=== PATIENT | female | born 1995 | race African-American/Black ===

== ENCOUNTER 2020-09-06 18:25 | Emergency (ER) | payer OTHER ==
[2020-09-06 18:40] VITALS: BP 134/89
--- NOTE | 2020-09-06 18:55 | ED Physician Documentation ---
History of Present Illness - Stated complaint Stated Complaint: FEMALE - Chief complaint Chief Complaint: Wound - History obtained from History obtained from: Patient - History of Present Illness Timing: Prior to arrival - Additonal information Additional information: 25-year-old female presents to the emergency department seeking evaluation and treatment of her genital herpes. She reports that her first outbreak was in May 2017. A responded at that time to valacyclovir she has not had an outbreak until just a few days ago where she noticed some painful bumps on her left upper labia minora. She denies dysuria fevers abdominal pain or vomiting. She is new to the [place] and has not yet established with a primary care provider Review of Systems Constitutional: reports: Reviewed and negative Eyes: reports: Reviewed and negative Nose: reports: Reviewed and negative Throat: reports: Reviewed and negative Cardiac: reports: Reviewed and negative Respiratory: reports: Reviewed and negative GI: reports: Reviewed and negative : reports: Other (Painful vesicles left labia). denies: Dysuria, Frequency, Hesitancy Skin: reports: Reviewed and negative Musculoskeletal: reports: Reviewed and negative PD PAST MEDICAL HISTORY - Present Medications Home Medications: Ambulatory Orders Medication Instructions Recorded Confirmed Valacyclovir HCl [Valtrex] 1,000 mg PO DAILY 5 Days #5 tablet 09/06/20 - Allergies Allergies/Adverse Reactions: Allergies Allergy/AdvReac Type Severity Reaction Status Date / Time sulfamethoxazole AdvReac Rash Verified 09/06/20 18:40 [From ] trimethoprim [From ] AdvReac Rash Verified 09/06/20 18:40 PD ED PE EXPANDED - General General: Alert, No acute distress, Well developed/nourished - Female Female : No: Normal external (Scattered painful vesicles left labia minora with mild ulceration. No vaginal discharge, no obvious swelling or erythema), Vaginal Bleeding, Vaginal Discharge Results - Vitals Vitals: Vital Signs - 24 hr 09/06/20 18:34 Temperature 37.7 C H Heart Rate 96 Respiratory 17 Rate Blood Pressure 134/89 H O2 Saturation 100 Oxygen O2 Source Room air PD MEDICAL DECISION MAKING - ED course Complexity details: considered differential, d/w patient ED course: 25-year-old female presents the emergency department for treatment of recurrent genital herpes. This would be her second outbreak. On exam she does have some scattered vesicular lesions that are painful on her inner left labia minora. We will start her on a prescription of valacyclovir. I will give her 2 refills but have advised close follow-up with primary care provider. Departure - Departure Disposition: 01 Home, Self Care Clinical Impression: Genital herpes Qualifiers: Herpes simplex infection site: vulvovaginitis Qualified Code(s): A60.04 - Herpesviral vulvovaginitis Condition: Stable Record reviewed to determine appropriate education?: Yes Instructions: ED Herpes Simplex Virus Type 2 Prescriptions: Valacyclovir HCl [Valtrex] 1,000 mg PO DAILY 5 Days #5 tablet Comments: Patient I have written a refill for valacyclovir. I do recommend that you fill the prescription and begin taking immediately. I also recommend that you fill one of the refills available to you so that you have it in the future without needing to seek medical care. If you have fevers swelling in your vulva, or you feel that the symptoms are not improving with the valacyclovir, please return to the ER. Warm sitz baths may help soothe the lesions.
== END 2020-09-06 19:02 | disposition home or self-care (01) ==
LOC: ED 18:25
DX: A60.04 Herpesviral vulvovaginitis (principal)
CPT/HCPCS: 99283

== ENCOUNTER 2021-05-26 16:34 | Emergency (ER) | payer OTHER ==
--- NOTE | 2021-05-26 17:06 | ED Physician Documentation ---
PD HPI MAJOR TRAUMA - Stated complaint Stated Complaint: CP - Chief complaint Chief Complaint: Cardiac - History obtained from History obtained from: Patient - Additional information Additional information: 26-year-old woman, previously healthy presents with cough productive of clear sputum for the past 4 to 5 days as well as sinus congestion, runny nose. She also had chest tightness and feeling of her heart skipping a beat today. Denies fever, nausea, body aches. Vaccinated against COVID-19. Review of Systems Ten Systems: 10 systems reviewed and negative Constitutional: reports: Fatigue. denies: Fever, Chills Nose: reports: Rhinorrhea / runny nose, Congestion Throat: denies: Sore throat Cardiac: reports: Chest pain / pressure, Palpitations Respiratory: reports: Cough. 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 : None HEENT: None Psych: None Musculoskeletal: None Derm: None - Past Surgical History Past Surgical History: No - Present Medications Home Medications: Ambulatory Orders Medication Instructions Recorded Confirmed Valacyclovir HCl [Valtrex] 1,000 mg PO DAILY PRN 05/26/21 05/26/21 - Allergies Allergies/Adverse Reactions: Allergies Allergy/AdvReac Type Severity Reaction Status Date / Time sulfamethoxazole AdvReac Rash Verified 05/26/21 16:37 [From ] trimethoprim [From ] AdvReac Rash Verified 05/26/21 16:37 - Social History Does the pt smoke?: No Smoking Status: Never smoker Does the pt have substance abuse?: No - Immunizations Immunizations are current?: Yes PD ED PE NORMAL - Vitals Vital signs reviewed: Yes - General General: Alert and oriented X 3, No acute distress, Well developed/nourished - HEENT HEENT: Atraumatic, PERRL, EOMI - Neck Neck: Supple, no meningeal sign - Cardiac Cardiac: RRR - Respiratory Respiratory: No respiratory distress, Clear bilaterally, Other (wet cough) - Abdomen Abdomen: Non tender, Non distended - Derm Derm: Normal color - Extremities Extremities: No deformity, No edema - Neuro Neuro: Alert and oriented X 3 - Psych Psych: Normal mood, Normal affect Results - Vitals Vitals: Vital Signs - 24 hr 05/26/21 05/26/21 16:37 16:43 Temperature 36.9 C 36.9 C Heart Rate 90 90 Respiratory 16 16 Rate Blood Pressure 143/69 H 143/69 H O2 Saturation 99 99 Oxygen O2 Source Room air PD MEDICAL DECISION MAKING - ED course ED course: 26-year-old woman presents with URI syndrome. Education given and return precautions given. Patient will follow up with her primary doctor. Departure - Departure Clinical Impression: Viral upper respiratory infection Condition: Good Instructions: ED Viral Syndrome Comments: You are seen in the emergency department for a viral upper respiratory infection. Your EKG and chest xray were normal. You should quarantine at home until your covid test comes back negative. You can view the results of your test on the online patient health portal. You can call a local pharmacy for curbside pickup. [id number] medications that may help you include: - guaifenesin, an expectorant that loosens up mucus in the chest and helps you cough it up. found in [employer] and also available as a pill. - oxymetazoline spray (brand name afrin) that relieves sinus congestion. DO NOT USE MORE THAN TWICE DAILY - pedialyte or equivalent electrolyte solution - cepacol throat drops Please return to the emergency department if you experience new or worsening symptoms or have other concerns. Follow up with your primary doctor. Forms: Activity restrictions
--- NOTE | 2021-05-26 17:43 | XRAY Report ---
PROCEDURE: Chest 2 View X-Ray INDICATIONS: ,, chest congestion TECHNIQUE: 2 view(s) of the chest. COMPARISON: None. FINDINGS: Surgical changes and devices: None. Lungs and pleura: No pleural effusions or pneumothorax. Increased opacity in the central perihilar l ungs. No focal consolidation. Mediastinum: Mediastinal contours are normal. Heart size is normal. Bones and chest wall: No suspicious bony abnormalities. Soft tissues appear unremarkable. IMPRESSION: Increased opacity in the central perihilar lungs, which can be seen in the setting of sma ll airways disease such as viral bronchitis or asthma. Reviewed by: Vik Calles MD on 05/26/2021 5:42 PM PDT Approved by: Vik Calles MD on 05/26/2021 5:42 PM PDT Station ID: [id number]
[2021-05-26 18:48] VITALS: BP 121/82
== END 2021-05-26 18:14 | disposition home or self-care (01) ==
LOC: ED 16:34
DX: J06.9 Acute upper respiratory infection, unspecified (principal); Z20.822 Contact with and (suspected) exposure to COVID-19
CPT/HCPCS: 93005; 99284

== ENCOUNTER 2021-10-21 14:24 | Emergency (ER) | payer OTHER ==
[2021-10-21 14:35] VITALS: BP 152/85
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
== END 2021-10-21 14:38 | disposition home or self-care (01) ==
LOC: ED 14:24
DX: S50.01XA Contusion of right elbow, initial encounter (principal); S00.83XA Contusion of other part of head, initial encounter; V47.5XXA Car driver injured in collision with fixed or stationary object in traffic accident, initial encounter; Y93.89 Activity, other specified; Y92.410 Unspecified street and highway as the place of occurrence of the external cause
CPT/HCPCS: 99281; 99282

== ENCOUNTER 2021-11-11 21:42 | Outpatient (CLI) | payer OTHER | END 2021-11-11 21:43 | disposition EMS.NT | LOC: EMS 21:42 | DX: R07.9 Chest pain, unspecified (principal) ==